=== PATIENT | female | born 1990 | race Caucasian/White ===

== ENCOUNTER 2018-01-04 16:51 | Emergency (ER) | payer BC | END 2018-01-04 17:01 | disposition home or self-care (01) | LOC: E/R 17:01 | DX: J06.9 Acute upper respiratory infection, unspecified (principal); H66.92 Otitis media, unspecified, left ear | CPT/HCPCS: 99283 ==

== ENCOUNTER 2019-01-07 13:17 | Emergency (ER) | payer BC ==
[2019-01-07] MEDS: KETOROLAC 60 MG INJ IM (15:01)
[2019-01-07] MEDS: DEXAMETHASONE 10 MG/ML 1 ML INJ IM (15:01)
== END 2019-01-07 15:06 | disposition home or self-care (01) ==
LOC: FTE 13:17
DX: J30.9 Allergic rhinitis, unspecified (principal)
CPT/HCPCS: 81025; 96372; 99284-25